=== PATIENT | male | born 1995 | race Caucasian/White ===

== ENCOUNTER 2025-06-12 23:11 | Emergency (ER) | payer BC ==
[2025-06-13] MEDS ORDERED: Ketorolac Tromethamine 30 MG (1 mL) VIAL ONE (04:06)
[2025-06-13] MEDS ORDERED: Methocarbamol 500 MG TAB ONE (04:06)
== END 2025-06-13 05:05 | disposition home or self-care (01) ==
LOC: ERS 23:11
DX: M54.50 Low back pain, unspecified (principal); X50.0XXA Overexertion from strenuous movement or load, initial encounter
CPT/HCPCS: 96372; 99283; J1885